=== PATIENT | female | born 1950 | race Caucasian/White ===

== ENCOUNTER 2022-10-12 19:29 | Emergency (ER) | payer MEDICARE | END 2022-10-12 21:55 | disposition home or self-care (01) | LOC: CSHERS 19:29 | DX: J06.9 Acute upper respiratory infection, unspecified (principal) | CPT/HCPCS: 71045 ==

== ENCOUNTER 2022-11-24 00:29 | Emergency (ER) | payer MEDICARE, OTHER | END 2022-11-24 02:22 | disposition home or self-care (01) | LOC: CSHERS 00:29 | DX: U07.1 COVID-19 (principal); J11.1 Influenza due to unidentified influenza virus with other respiratory manifestations | CPT/HCPCS: 99283 ==

== ENCOUNTER 2023-02-20 10:45 | Inpatient (IN) | payer MEDICARE, OTHER ==
[~2023-02-20 10:45] MED LIST: Iopamidol 370 76% 100 ML VIAL ONE
[2023-02-20 11:49] LABS: #Basophils 0.1 10x3/uL (0.0-0.2); #Monocytes 1.3 10x3/uL (0.0-1.1); #Neutrophils 7.1 10x3/uL (1.5-8.4); %Basophils 0.5 % (0.0-2.0); %Eosinophils 0.1 % (0.0-6.0); %Lymphocytes 8.8 % (18.0-47.0); %Monocytes 13.8 % (0.0-10.0); %Neutrophils 76.2 % (40.0-75.0); Hemoglobin 14.1 g/dL (12.0-15.5); Mean Corpuscular HGB CONC 32.8 g/dL (32.0-36.0); Mean Corpuscular Hemoglobin 28.3 pg (27.0-33.0); Mean Corpuscular Volume 86.3 fl (81.6-98.3); Mean Platelet Volume 10.7 fl (7.4-10.4); Platelet Count 159 10x3/uL (150-450); RBC Distribution Width 14.6 % (11.5-14.5); Red Blood Cell (RBC) Count 4.98 10x6/uL (3.90-5.03); White Blood Cell (WBC) Count 9.4 10x3/uL (3.5-10.5)
[2023-02-20 11:54] LABS: ALT (SGPT) 49 U/L (8-55); Albumin 3.8 g/dL (3.4-4.8); Alkaline Phosphatase 315 U/L (40-110); Anion Gap 17 mmol/L (10-20); BUN (Urea Nitrogen) 17 mg/dL (9.8-20.1); Bilirubin, Total 0.7 mg/dL (0.2-1.2); Calc. Creatinine Clearance 0 mL/min (70-130); Calcium 10.1 mg/dL (7.8-10.44); Carbon Dioxide 25 mmol/L (23-31); Chloride 99 mmol/L (98-107); Estimated GFR 45; Globulin 4.2 g/dL (2.4-3.5); Glucose 104 mg/dL (83-110); Potassium 4.3 mmol/L (3.5-5.1); Sodium 137 mmol/L (136-145)
[2023-02-20 12:07] LABS: AST (SGOT) 48 U/L (5-34)
[2023-02-20 17:27] VITALS: BMI 48.4
[2023-02-20] MEDS ORDERED: Sodium Chloride 0.9% 1,000 ML IV SCH (17:45)
[2023-02-20] MEDS ORDERED: Acetaminophen 650 MG Suppository PR PRN (17:45)
[2023-02-20] MEDS ORDERED: Ondansetron PF 4 MG/2 ML Vial IVP PRN (17:45)
[2023-02-20] MEDS ORDERED: Ondansetron ODT 4 MG TAB PO PRN (17:45)
[2023-02-20] MEDS ORDERED: Senokot S 8.6-50 MG TAB PO PRN (17:45)
[2023-02-20] MEDS: Azithromycin 500 MG in Sodium Chloride 0.9% 250 ML 250 ML IVPB SCH (17:59)
[2023-02-20] MEDS: Famotidine 20 MG TAB PO SCH (21:32)
[2023-02-20] MEDS: cefTRIAXone\\ROCEPHIN 1 GM in Sodium Chloride 0.9% 100 ML IVPB SCH (21:32)
[2023-02-20] MEDS: Guaifenesin DM 100-10/5 ML UDCUP PO PRN (23:36)
[2023-02-20] MEDS: Acetaminophen 325 MG TAB PO PRN (23:36)
[2023-02-21 04:48] LABS: #Monocytes 1.1 10x3/uL (0.0-1.1); #Neutrophils 5.8 10x3/uL (1.5-8.4); %Basophils 0.4 % (0.0-2.0); %Eosinophils 0.1 % (0.0-6.0); %Lymphocytes 12.9 % (18.0-47.0); %Monocytes 13.7 % (0.0-10.0); %Neutrophils 72.5 % (40.0-75.0); Mean Corpuscular HGB CONC 32.6 g/dL (32.0-36.0); Mean Corpuscular Hemoglobin 28.1 pg (27.0-33.0); Mean Corpuscular Volume 86.4 fl (81.6-98.3); Mean Platelet Volume 11.8 fl (7.4-10.4); Platelet Count 163 10x3/uL (150-450); RBC Distribution Width 14.6 % (11.5-14.5); Red Blood Cell (RBC) Count 4.62 10x6/uL (3.90-5.03); White Blood Cell (WBC) Count 8.1 10x3/uL (3.5-10.5)
[2023-02-21 05:05] LABS: Anion Gap 18 mmol/L (10-20); BUN (Urea Nitrogen) 22 mg/dL (9.8-20.1); Calc. Creatinine Clearance 76 mL/min (70-130); Calcium 9.6 mg/dL (7.8-10.44); Carbon Dioxide 23 mmol/L (23-31); Chloride 102 mmol/L (98-107); Estimated GFR 39; Glucose 105 mg/dL (83-110); Sodium 139 mmol/L (136-145)
[2023-02-21] MEDS ORDERED: Rivaroxaban 10 MG TAB PO SCH (09:00)
[2023-02-21] MEDS: Famotidine 20 MG TAB PO SCH ×2 (09:53→19:55)
[2023-02-21] MEDS: Rivaroxaban 10 MG TAB PO SCH (12:33)
[2023-02-21] MEDS ORDERED: Azithromycin 500 MG VIAL ONE (18:14)
[2023-02-21] MEDS: Azithromycin 500 MG in Sodium Chloride 0.9% 250 ML 250 ML IVPB SCH (18:22)
[2023-02-21] MEDS: Acetaminophen 325 MG TAB PO PRN (19:56)
[2023-02-21] MEDS: cefTRIAXone\\ROCEPHIN 1 GM in Sodium Chloride 0.9% 100 ML IVPB SCH (20:00)
[2023-02-22 05:45] LABS: Magnesium 1.6 mg/dL (1.6-2.6); Phosphorus 4.4 mg/dL (2.3-4.7)
[2023-02-22 06:01] LABS: Free T4 (Free Thyroxine) 0.88 ng/dL (0.70-1.48)
[2023-02-22] MEDS: Levothyroxine Sodium 50 MCG TAB PO SCH (06:09)
[2023-02-22] MEDS: Famotidine 20 MG TAB PO SCH ×2 (09:12→20:43)
[2023-02-22] MEDS: Loratadine 10 MG TAB PO SCH (09:12)
[2023-02-22] MEDS: Magnesium Oxide 400 MG TAB PO SCH (09:12)
[2023-02-22] MEDS: Rivaroxaban 10 MG TAB PO SCH (09:12)
[2023-02-22] MEDS ORDERED: guaiFENesin ER 600 MG TAB PO SCH (12:00)
[2023-02-22 14:15] LABS: Bilirubin Neg (Negative); Blood, Urine 25 (Negative); Clarity Slightly Cloudy (Clear); Glucose, Urine (Dipstick) Normal (Negative); Ketone, Urine Negative (Negative); Leukocyte 25 (Negative); Nitrite Negative (Negative); Protein, Urine (Dipstick) 30 mg/dl (Neg-Trace); Urobilinogen Normal mg/dL (Less than 2)
[2023-02-22 14:38] LABS: Bacteria/HPF 2+ HPF (None Seen); Mucous/LPF 1+ LPF (<2+); RBC/HPF 0-3 HPF (0-3); Renal Epithelial 0-3 HPF (None Seen)
[2023-02-22] MEDS: Azithromycin 500 MG in Sodium Chloride 0.9% 250 ML 250 ML IVPB SCH ×2 (17:34→18:56)
[2023-02-22] MEDS: Acetaminophen 325 MG TAB PO PRN (18:24)
[2023-02-22] MEDS: cefTRIAXone\\ROCEPHIN 1 GM in Sodium Chloride 0.9% 100 ML IVPB SCH (20:43)
[2023-02-22] MEDS: guaiFENesin ER 600 MG TAB PO SCH (20:44)
[2023-02-22] MEDS: Guaifenesin DM 100-10/5 ML UDCUP PO PRN (23:38)
[2023-02-23] MEDS: Levothyroxine Sodium 50 MCG TAB PO SCH (05:41)
[2023-02-23] MEDS: Famotidine 20 MG TAB PO SCH ×2 (08:32→20:52)
[2023-02-23] MEDS: Loratadine 10 MG TAB PO SCH (08:32)
[2023-02-23] MEDS: Magnesium Oxide 400 MG TAB PO SCH (08:33)
[2023-02-23] MEDS: Rivaroxaban 10 MG TAB PO SCH (08:33)
[2023-02-23] MEDS: guaiFENesin ER 600 MG TAB PO SCH ×2 (08:33→20:52)
[2023-02-23 09:25] LABS: #Monocytes 0.8 10x3/uL (0.0-1.1); #Neutrophils 5.5 10x3/uL (1.5-8.4); %Basophils 0.3 % (0.0-2.0); %Eosinophils 0.4 % (0.0-6.0); %Lymphocytes 9.2 % (18.0-47.0); %Monocytes 11.9 % (0.0-10.0); %Neutrophils 77.6 % (40.0-75.0); Hemoglobin 12.7 g/dL (12.0-15.5); Mean Corpuscular HGB CONC 31.9 g/dL (32.0-36.0); Mean Corpuscular Hemoglobin 27.6 pg (27.0-33.0); Mean Corpuscular Volume 86.5 fl (81.6-98.3); Mean Platelet Volume 10.8 fl (7.4-10.4); Platelet Count 160 10x3/uL (150-450); RBC Distribution Width 14.7 % (11.5-14.5)
[2023-02-23 09:36] LABS: Anion Gap 16 mmol/L (10-20); BUN (Urea Nitrogen) 20 mg/dL (9.8-20.1); Calc. Creatinine Clearance 101 mL/min (70-130); Carbon Dioxide 24 mmol/L (23-31); Chloride 102 mmol/L (98-107); Estimated GFR 54; Glucose 136 mg/dL (83-110); Potassium 3.5 mmol/L (3.5-5.1); Sodium 138 mmol/L (136-145)
[2023-02-23] MEDS ORDERED: Bumetanide 1 MG/4 ML VIAL IVP SCH (10:45)
[2023-02-23] MEDS: Azithromycin 500 MG in Sodium Chloride 0.9% 250 ML 250 ML IVPB SCH (18:16)
[2023-02-23] MEDS: cefTRIAXone\\ROCEPHIN 1 GM in Sodium Chloride 0.9% 100 ML IVPB SCH (20:51)
[2023-02-23] MEDS: Acetaminophen 325 MG TAB PO PRN (20:52)
[2023-02-23] MEDS: Guaifenesin DM 100-10/5 ML UDCUP PO PRN (20:52)
[2023-02-24 03:50] LABS: #Neutrophils 4.7 10x3/uL (1.5-8.4); %Basophils 0.3 % (0.0-2.0); %Eosinophils 0.6 % (0.0-6.0); %Lymphocytes 12.3 % (18.0-47.0); %Monocytes 14.9 % (0.0-10.0); %Neutrophils 71.6 % (40.0-75.0); Hemoglobin 12.5 g/dL (12.0-15.5); Mean Corpuscular HGB CONC 32.8 g/dL (32.0-36.0); Mean Corpuscular Hemoglobin 28.2 pg (27.0-33.0); Mean Corpuscular Volume 85.8 fl (81.6-98.3); Mean Platelet Volume 10.9 fl (7.4-10.4); Platelet Count 167 10x3/uL (150-450); RBC Distribution Width 14.6 % (11.5-14.5); Red Blood Cell (RBC) Count 4.44 10x6/uL (3.90-5.03); White Blood Cell (WBC) Count 6.6 10x3/uL (3.5-10.5)
[2023-02-24 03:56] LABS: Anion Gap 16 mmol/L (10-20); BUN (Urea Nitrogen) 19 mg/dL (9.8-20.1); Calc. Creatinine Clearance 102 mL/min (70-130); Calcium 8.7 mg/dL (7.8-10.44); Carbon Dioxide 26 mmol/L (23-31); Chloride 101 mmol/L (98-107); Estimated GFR 54; Glucose 95 mg/dL (83-110); Potassium 3.7 mmol/L (3.5-5.1); Sodium 139 mmol/L (136-145)
[2023-02-24] MEDS: Levothyroxine Sodium 50 MCG TAB PO SCH (05:53)
[2023-02-24] MEDS: Rivaroxaban 10 MG TAB PO SCH (08:35)
[2023-02-24] MEDS: guaiFENesin ER 600 MG TAB PO SCH (08:35)
[2023-02-24] MEDS: Loratadine 10 MG TAB PO SCH (08:35)
[2023-02-24] MEDS: Famotidine 20 MG TAB PO SCH (08:35)
[2023-02-24] MEDS: Magnesium Oxide 400 MG TAB PO SCH (08:35)
[2023-02-24 13:21] VITALS: BP 129/73; TEMP 98.2
== END 2023-02-24 16:00 | disposition home or self-care (01) | DRG 871 ==
LOC: CSHERS 10:45 → CSHTELE 16:24
PROVIDERS: ADMIT Emergency Medicine; ATTEND Internal Medicine
DX: A41.9 Sepsis, unspecified organism (principal); J18.9 Pneumonia, unspecified organism; J96.01 Acute respiratory failure with hypoxia; C22.0 Liver cell carcinoma; C56.9 Malignant neoplasm of unspecified ovary; N17.9 Acute kidney failure, unspecified; Z68.42 Body mass index [BMI] 45.0-49.9, adult; E66.9 Obesity, unspecified; G62.9 Polyneuropathy, unspecified; T45.1X5A Adverse effect of antineoplastic and immunosuppressive drugs, initial encounter; H05.20 Unspecified exophthalmos; R65.20 Severe sepsis without septic shock; Z79.01 Long term (current) use of anticoagulants; Z86.711 Personal history of pulmonary embolism; Z88.0 Allergy status to penicillin; Z98.890 Other specified postprocedural states; Z90.710 Acquired absence of both cervix and uterus; Z82.49 Family history of ischemic heart disease and other diseases of the circulatory system
CPT/HCPCS: 36415; 71045; 71275; 80048; 80053; 81001; 83605; 83735; 83880; 84100; 84439; 84443; 84481; 84484; 85025; 87040; 87633; 93005; 93306; 94760; 94762; 96365; J0456; J0696; J1956; J3490; J7050; Q9967

== ENCOUNTER 2023-06-22 17:11 | Emergency (ER) | payer MEDICARE, OTHER ==
[2023-06-22 18:47] LABS: Hematocrit 37.1 % (34.9-44.5); Hemoglobin 12.4 g/dL (12.0-15.5); Mean Corpuscular HGB CONC 33.4 g/dL (32.0-36.0); Mean Corpuscular Hemoglobin 30.2 pg (27.0-33.0); Mean Corpuscular Volume 90.3 fl (81.6-98.3); Mean Platelet Volume 11.1 fl (7.4-10.4); Platelet Count 191 10x3/uL (150-450); Red Blood Cell (RBC) Count 4.11 10x6/uL (3.90-5.03); White Blood Cell (WBC) Count 7.9 10x3/uL (3.5-10.5)
[2023-06-22 18:59] LABS: Prothrombin Time 10.8 sec (9.5-12.1)
[2023-06-22 19:02] LABS: ALT (SGPT) 30 U/L (8-55); AST (SGOT) 28 U/L (5-34); Albumin 3.7 g/dL (3.4-4.8); Alkaline Phosphatase 257 U/L (40-110); Anion Gap 16 mmol/L (10-20); BUN (Urea Nitrogen) 20 mg/dL (9.8-20.1); Bilirubin, Total 0.5 mg/dL (0.2-1.2); Calc. Creatinine Clearance 0 mL/min (70-130); Calcium 9.3 mg/dL (7.8-10.44); Carbon Dioxide 24 mmol/L (23-31); Chloride 102 mmol/L (98-107); Estimated GFR 47; Globulin 2.6 g/dL (2.4-3.5); Glucose 143 mg/dL (83-110); Potassium 3.5 mmol/L (3.5-5.1); Protein, Total 6.3 g/dL (5.8-8.1); Sodium 138 mmol/L (136-145)
[2023-06-22 19:11] LABS: MDiff Complete? YES
[2023-06-22 19:14] LABS: Lymphocytes 24 % (21-51); Monocytes 4 % (0-10); Neutrophil 72 % (42-75)
[2023-06-22 19:15] LABS: Anisocytosis SLIGHT = 6-15 cells (100X) (0-5/hpf); Platelet Adequacy Comment Appears Adequate
[2023-06-22] MEDS ORDERED: HYDROcodone/Acetaminophen 5/325 mg Tablet ONE (20:05)
== END 2023-06-22 20:46 | disposition home or self-care (01) ==
LOC: CSHERS 17:11
DX: S00.11XA Contusion of right eyelid and periocular area, initial encounter (principal); S09.90XA Unspecified injury of head, initial encounter; W18.30XA Fall on same level, unspecified, initial encounter
CPT/HCPCS: 70450; 70486; 80053; 85025; 85610

== ENCOUNTER 2023-07-18 10:18 | Emergency (ER) | payer MEDICARE, OTHER ==
[2023-07-18 10:51] LABS: #Neutrophils 6.4 10x3/uL (1.5-8.4); %Basophils 0.2 % (0.0-2.0); %Eosinophils 0.1 % (0.0-6.0); %Lymphocytes 12.6 % (18.0-47.0); %Monocytes 11.9 % (0.0-10.0); %Neutrophils 74.8 % (40.0-75.0); Hematocrit 36.7 % (34.9-44.5); Hemoglobin 12.2 g/dL (12.0-15.5); Mean Corpuscular HGB CONC 33.2 g/dL (32.0-36.0); Mean Corpuscular Hemoglobin 30.9 pg (27.0-33.0); Mean Corpuscular Volume 92.9 fl (81.6-98.3); Platelet Count 198 10x3/uL (150-450); RBC Distribution Width 17.1 % (11.5-14.5); Red Blood Cell (RBC) Count 3.95 10x6/uL (3.90-5.03); White Blood Cell (WBC) Count 8.5 10x3/uL (3.5-10.5)
[2023-07-18 11:17] LABS: ALT (SGPT) 22 U/L (8-55); AST (SGOT) 28 U/L (5-34); Albumin 3.7 g/dL (3.4-4.8); Alkaline Phosphatase 217 U/L (40-110); Anion Gap 14 mmol/L (10-20); BUN (Urea Nitrogen) 14 mg/dL (9.8-20.1); Bilirubin, Total 0.5 mg/dL (0.2-1.2); Calc. Creatinine Clearance 0 mL/min (70-130); Calcium 8.8 mg/dL (7.8-10.44); Carbon Dioxide 31 mmol/L (23-31); Chloride 101 mmol/L (98-107); Estimated GFR 56; Glucose 98 mg/dL (83-110); Magnesium 1.5 mg/dL (1.6-2.6); Potassium 3.7 mmol/L (3.5-5.1); Protein, Total 5.7 g/dL (5.8-8.1); Sodium 142 mmol/L (136-145)
[2023-07-18 11:21] LABS: Troponin I Less than 0.010 ng/mL (< 0.028)
[2023-07-18 11:40] LABS: SARS-CoV-2 NAA Rapid Test Not Detected (NotDetected)
[2023-07-18] MEDS ORDERED: Aspirin 325 MG TAB ONE (12:12)
[2023-07-18] MEDS ORDERED: Magnesium 2 GM/50 ML BAG (IN WATER) ONE (12:12)
[2023-07-18] MEDS ORDERED: Nitroglycerin 2% Ointment 1 INCH/1 GM Packet ONE (13:34)
[2023-07-18] MEDS ORDERED: Furosemide 40 MG/4 ML VIAL ONE (13:34)
[2023-07-18] MEDS ORDERED: Iopamidol 370 76% 100 ML VIAL ONE (14:24)
[2023-07-18] MEDS ORDERED: Ipratropium/Albuterol 3 ML NEB ONE (18:31)
== END 2023-07-18 20:50 | disposition admitted as inpatient to this hospital (09) ==
LOC: CSHERS 10:18
DX: I50.9 Heart failure, unspecified (principal); E83.42 Hypomagnesemia; Z20.822 Contact with and (suspected) exposure to COVID-19; Z79.02 Long term (current) use of antithrombotics/antiplatelets; Z86.718 Personal history of other venous thrombosis and embolism
CPT/HCPCS: 71045; 71275; 80053; 83605; 83735; 83880; 84484; 85025; 93005; 94760; J1940; J3475; J7620

== ENCOUNTER 2023-10-19 21:11 | Emergency (ER) | payer MEDICARE, OTHER ==
[2023-10-19] MEDS ORDERED: Dexamethasone 10 MG/ML VIAL ONE (22:06)
[2023-10-19] MEDS ORDERED: Methocarbamol 500 MG TAB PO SCH (22:15)
== END 2023-10-19 23:17 | disposition home or self-care (01) ==
LOC: CSHERS 21:11
DX: M54.31 Sciatica, right side (principal)
CPT/HCPCS: 96372; J1100